=== PATIENT | female | born 1985 | race Caucasian/White ===

== ENCOUNTER 2019-01-26 09:27 | Day surgery (SDC) | payer OTHER ==
[2019-01-26] MEDS ORDERED: MIDAZOLAM 2 MG/2 ML INJ ONE (11:47)
[2019-01-26] MEDS ORDERED: PROPOFOL INJ 200 MG/20 ML VIAL IV ONE ×2 (11:47→12:40)
[2019-01-26] MEDS ORDERED: PROMETHAZINE HCL INJ 25 MG/1 ML VIAL IV PRN ×2 (12:09)
[2019-01-26] MEDS ORDERED: DIPHENHYDRAMINE HCL 50 MG/ML VIAL IV PRN (12:09)
[2019-01-26] MEDS ORDERED: ONDANSETRON HCL INJ/PF 4 MG/2 ML SDV IV PRN (12:09)
[2019-01-26] MEDS ORDERED: ONDANSETRON HCL INJ/PF 4 MG/2 ML SDV ONE (13:17)
--- NOTE | 2019-01-26 14:03 | Operative Report ---
Operative Report DATE OF SURGERY: 01/26/19 Operative Report: The risks, benefits and alternatives of the procedure including the risk of bleeding, perforation requiring surgery have been explained to the patient in detail and informed consent has been obtained. The patient is brought back to the operating room and placed in a left, lateral decubital position. Timeout was called. Propofol medication is administered. Rectal examination is done which did not reveal any masses, tears or fissures. An Olympus videoscope was introduced into the patient's rectum. The scope was then carefully advanced all the way to the cecum the cecum was identified by the usual anatomical landmarks including the ileocecal valve as well as the appendiceal office. Photodocumentation was obtained. The scope was then sequentially pulled back via the various segments of the colon including the ascending colon, hepatic flexure, transverse colon, splenic flexure, descending colon and finally into the rectosigmoid portions of the colon. Retroflexion maneuver was performed. PREOPERATIVE DIAGNOSIS: Rectal bleeding POSTOPERATIVE DIAGNOSIS: Large pedunculated polyp measuring at least 3-4 cm noted at the second valve of [place]. It is removed via snare polypectomy and sections. 2 endoclips were placed to reduce the risk of post polypectomy bleeding. Internal hemorrhoids OPERATION: Colonoscopy with snare polypectomy SURGEON: GORAN JEFFREY ANESTHESIA: LMAC TISSUE REMOVED OR ALTERED: As noted above. COMPLICATIONS: None. ESTIMATED BLOOD LOSS: None. INTRAOPERATIVE FINDINGS: As noted above. PROCEDURE: Patient tolerated the procedure well. No immediate postprocedure complications are noted. Patient discharged in good condition. Discharge date 01/26/2019. Discharge diet: Regular. Discharge activity: Regular. 2-3-week follow-up to discuss findings. Wait on the pathology. 6-month surveillance colonoscopy.
[2019-01-26 15:16] VITALS: BP 115/77
== END 2019-01-26 14:35 | disposition home or self-care (01) ==
LOC: OROUT 09:27
PROVIDERS: ATTEND Internal Medicine Gastroenterology
DX: D12.8 Benign neoplasm of rectum (principal); K64.8 Other hemorrhoids; K62.5 Hemorrhage of anus and rectum; D64.9 Anemia, unspecified; Z79.899 Other long term (current) drug therapy
CPT/HCPCS: 45385; 81025; 88305 ×2; J2250; J2405; J2704; 811

== ENCOUNTER 2019-02-10 07:45 | Day surgery (SDC) | payer OTHER ==
[2019-02-10] MEDS ORDERED: PROPOFOL INJ 200 MG/20 ML VIAL IV ONE (08:13)
--- NOTE | 2019-02-10 08:52 | Operative Report ---
Operative Report DATE OF SURGERY: 02/10/19 Operative Report: The risks benefits and alternatives of the procedure explained to the patient in detail and informed consent is obtained.A GIF Olympus video scope was inserted into the patient's mouth and hypopharynx, the esophagus is identified intubated and insufflated, the scope was then advanced through the esophagus stomach and duodenum, retroflexion maneuver is done, the esophagus stomach and first and second portions of the duodenum examined. PREOPERATIVE DIAGNOSIS: Epigastric pain rule out peptic ulcer disease POSTOPERATIVE DIAGNOSIS: Gastritis status post biopsy rule out Helicobacter pylori OPERATION: EGD with biopsy SURGEON: GORAN JEFFREY ANESTHESIA: LMAC TISSUE REMOVED OR ALTERED: As noted above COMPLICATIONS: None. ESTIMATED BLOOD LOSS: None. INTRAOPERATIVE FINDINGS: As noted above. PROCEDURE: Patient tolerated the procedure well. No immediate postprocedure complications are noted. Patient discharged in good condition. Discharge date 02/10/2019. Discharge diet: Regular. Discharge activity: Regular. 2-3-week follow-up to discuss findings. Patient is instructed call the office or proceed to the emergency room should there be any further proximal questions. Wait on the pathology.
[2019-02-10 09:33] VITALS: BP 90/66
== END 2019-02-10 09:40 | disposition home or self-care (01) ==
LOC: OROUT 07:45
PROVIDERS: ATTEND Internal Medicine Gastroenterology
DX: K29.50 Unspecified chronic gastritis without bleeding (principal); F17.210 Nicotine dependence, cigarettes, uncomplicated
CPT/HCPCS: 43239; 88305 ×2; J2704; 731

== ENCOUNTER 2019-04-20 19:42 | Emergency (ER) | payer OTHER ==
[2019-04-20 20:03] VITALS: BP 107/65
== END 2019-04-20 21:20 | disposition left against medical advice (07) ==
LOC: ER 19:42
DX: Z53.21 Procedure and treatment not carried out due to patient leaving prior to being seen by health care provider (principal)